=== PATIENT | male | born 1955 | race Caucasian/White ===

== ENCOUNTER 2017-06-29 15:21 | Emergency (ER) | payer OTHER ==
[2017-06-29 15:28] VITALS: TEMP 98.1
[2017-06-29] MEDS ORDERED: TDAP ADULT 0.5 ML INJ (BOOSTRIX) IM ONE (17:14)
--- NOTE | 2017-06-29 17:14 | EDPHY ---
H & P Time Seen by Provider: 06/29/17 16:17 HPI/ROS: CHIEF COMPLAINT: Laceration left wrist HISTORY OF PRESENT ILLNESS: 61-year-old male presents to the emergency department with laceration to the left wrist. The the patient accidentally cut his wrists with a knife while trying to cut bread. This happened just prior to arrival at work. He is unsure of his last tetanus shot. Patient is right-hand dominant. ROS: Denies numbness or tingling in his fingers, retained foreign body. Past Medical/Surgical History: Orthopedic injuries Social History: Smoking Status: Never smoked Physical Exam: On examination the patient has a 2.5 cm laceration on the dorsal aspect of his left wrist on the radial aspect. No active bleeding noted. No tendon injury noted. No evidence of retained foreign body. Full range of motion of his fingers. No palpable bony tenderness. Constitutional: Initial Vital Signs Temperature (C) 36.7 C 06/29/17 15:25 Heart Rate 68 06/29/17 15:25 Respiratory Rate 16 06/29/17 15:25 Blood Pressure 139/90 H 06/29/17 15:25 O2 Sat (%) 98 06/29/17 15:25 O2 Delivery Mode Room Air Allergies/Adverse Reactions: No Known Allergies Allergy (Unverified 06/29/17 15:24) Home Medications: Medication Instructions Recorded NK [No Known Home Meds] 06/29/17 MDM/Departure - MDM Procedures: Laceration repair. Verbal consent was obtained from the patient. The 2.5 cm laceration on the left wrist was anesthetized using 1% lidocaine with epinephrine. The wound was irrigated with saline, draped and explored to its base with a gloved finger. There were no deep structures involved. No tendon injury was identified. The wound was repaired with 4 0 Ethilon, 4 sutures. The wound repair was simple. The procedure was performed by myself. Medications Given: Discontinued Medications Diphtheria/Tetanus/Acell Pertussis (Boostrix) 0.5 ml IM .ONCE ONE Stop: 06/29/17 17:15 Last Admin: 06/29/17 17:31 Dose: 0.5 ml ED Course/Re-evaluation: 61-year-old male presents to the emergency department with left wrist laceration. See procedure note. - Depart Disposition: Home, Routine, Self-Care Clinical Impression: Laceration of left wrist Qualifiers: Encounter type: initial encounter Qualified Code(s): S61.512A - Laceration without foreign body of left wrist, initial encounter Condition: Good Instructions: Care For Your Stitches (ED), Laceration (ED), Acute Wounds (ED) Additional Instructions: Wound Care Follow-Up: Removal of sutures in 10 days. Suture removal is complimentary in uncomplicated cases. Infection or abnormal findings would require reevaluation by the MD. In that case, you may be billed. Wound Care Follow-Up: Return if you notice any signs or symptoms of infection such as redness, swelling, increased pain, fever, purulent drainage. Ibuprofen 600 mg every 8 hr as needed for pain. Your given a tetanus shot today in the emergency department. Referrals: Edwige Durbin MD [Primary Care Provider] - As per Instructions
[2017-06-29 17:35] VITALS: BP 133/87; PULSE 82; RESP 19; O2SAT 95
== END 2017-06-29 17:34 | disposition home or self-care (01) ==
PROC: 0HQEXZZ Repair Left Lower Arm Skin, External Approach (ICD-10-PCS; principal; 2017-06-29)
DX: S61.512A Laceration without foreign body of left wrist, initial encounter (principal); Z23 Encounter for immunization; W26.0XXA Contact with knife, initial encounter